=== PATIENT | male | born 1950 | race Caucasian/White ===

== ENCOUNTER 2016-10-26 14:22 | Emergency (ER) | payer MEDICARE ==
[~2016-10-26] VITALS: Ht 175.2 cm; Wt 99.8 kg
[~2016-10-26 14:22] MED LIST: ACULAR 3 ML3 M1 OP; ALBUTEROL0.09 MG/A2 INH; AMLODIPINE5 MG PO; CALCIUM 500500 M1 PO; CLARITIN-D 12 H1 TAB PO; CLARITIN10 MG PO; CRESTOR5 MG PO; DAYPRO600 M1 PO; HYDROCODONE BIT1 T11 PO; IBU-8800 MG PO; METFORMIN500 MG PO; MOTRIN800 MG PO; NAPROSYN500 MG PO; NORCO 325 MG-51 TAB PO; PARAFON FORTE500 MG PO; PREDNICOT20 MG PO; ROBAXIN750 MG PO; TOBREX OPHTH S2.5 ML OPH; ZITHROMAX Z PA250 MG PO; ZYRTEC10 MG PO
[2016-10-26] MEDS ORDERED: NAPROSYN500 MG PO (14:42)
== END 2016-10-26 15:42 | disposition home or self-care (01) ==
LOC: ED 14:22
DX: M25.571 Pain in right ankle and joints of right foot (principal); I10 Essential (primary) hypertension; Z90.49 Acquired absence of other specified parts of digestive tract; Z96.642 Presence of left artificial hip joint; Z79.899 Other long term (current) drug therapy

== ENCOUNTER 2017-01-10 21:51 | Emergency (ER) | payer MEDICARE ==
[~2017-01-10] VITALS: Ht 175.2 cm; Wt 100.7 kg
[2017-01-10] MEDS ORDERED: AUGMENTIN 875875 MG PO (22:11)
[2017-01-10] MEDS ORDERED: CLARITIN10 MG PO (22:11)
[2017-01-10] MEDS ORDERED: FLONASE ALLERG9.9 ML NAS (22:11)
== END 2017-01-10 22:14 | disposition home or self-care (01) ==
LOC: ED 21:51
DX: J01.90 Acute sinusitis, unspecified (principal); Z79.899 Other long term (current) drug therapy

== ENCOUNTER 2017-12-16 21:14 | Emergency (ER) | payer MEDICARE ==
[~2017-12-16] VITALS: Ht 172.7 cm; Wt 113.4 kg
[~2017-12-16 21:14] MED LIST changes: +AUGMENTIN 875875 MG PO; +FLONASE ALLERG9.9 ML NAS
== END 2017-12-16 21:48 | disposition home or self-care (01) ==
LOC: ED 21:14
DX: R05 Cough (principal); I10 Essential (primary) hypertension; Z79.899 Other long term (current) drug therapy; Z79.84 Long term (current) use of oral hypoglycemic drugs; Z90.49 Acquired absence of other specified parts of digestive tract

== ENCOUNTER 2018-01-11 21:09 | Emergency (ER) | payer MEDICARE ==
[~2018-01-11] VITALS: Ht 172.7 cm; Wt 90.7 kg
[2018-01-11] MEDS ORDERED: ZITHROMAX250 MG PO (21:55)
[2018-01-11] MEDS ORDERED: FLONASE ALLERG9.9 ML NAS (21:55)
== END 2018-01-11 22:00 | disposition home or self-care (01) ==
LOC: ED 21:09
DX: J32.9 Chronic sinusitis, unspecified (principal); J30.9 Allergic rhinitis, unspecified; I10 Essential (primary) hypertension; Z79.84 Long term (current) use of oral hypoglycemic drugs; Z79.899 Other long term (current) drug therapy; Z90.49 Acquired absence of other specified parts of digestive tract

== ENCOUNTER 2018-03-25 22:01 | Emergency (ER) | payer MEDICARE ==
[~2018-03-25] VITALS: Ht 172.7 cm; Wt 99.8 kg
[~2018-03-25 22:01] MED LIST changes: +ZITHROMAX250 MG PO
[2018-03-25] MEDS ORDERED: ZITHROMAX250 MG PO (22:55)
[2018-03-25] MEDS ORDERED: ROBITUSSIN DM 105 ML PO (22:55)
== END 2018-03-25 23:47 | disposition home or self-care (01) ==
LOC: ED 22:01
DX: J20.9 Acute bronchitis, unspecified (principal); I10 Essential (primary) hypertension; Z90.49 Acquired absence of other specified parts of digestive tract; Z79.899 Other long term (current) drug therapy; Z79.2 Long term (current) use of antibiotics

== ENCOUNTER 2018-08-14 15:04 | Emergency (ER) | payer MEDICARE ==
--- NOTE | ~2018-08-14 | EKG ---
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
[~2018-08-14 15:04] MED LIST changes: +ROBITUSSIN DM 105 ML PO
[2018-08-14 15:36] LABS: BASO # 0.1 10*3/uL (0.0-0.1); BASO % 0.6 % (0.0-1.0); EOS # 0.3 10*3/uL (0.0-0.4); EOS % 2.7 % (1.0-4.0); HEMATOCRIT 47.8 % (42.0-52.0); HEMOGLOBIN 15.9 g/dl (14.0-18.0); LYMPH # 1.7 10*3/uL (1.3-4.4); LYMPH % 14.2 % (27.0-41.0); MEAN CELL VOLUME 90.9 fl (80.0-94.0); MEAN CORPUSCULAR HGB 30.2 pg (27.0-31.0); MEAN CORPUSCULAR HGB CONC 33.3 g/dl (33.0-37.0); MEAN PLATELET VOLUME 9.5 fl (9.6-12.3); MONO # 1.2 10*3/uL (0.1-1.0); MONO % 9.4 % (3.0-9.0); NEUT # 8.9 10*3/uL (2.3-7.9); NEUT % 72.9 % (47.0-73.0); PLATELET COUNT AUTOMATED 244 10*3/uL (130-400); RED BLOOD COUNT 5.26 10*6/uL (4.50-5.90); RED CELL DISTRI WIDTH 12.4 % (0-14.5); WHITE BLOOD COUNT 12.2 10*3/uL (4.8-10.8)
[2018-08-14 15:53] LABS: ALBUMIN 3.8 gm/dl (3.1-4.5); ALKALINE PHOSPHATASE 85 U/L (45-117); BUN 14 mg/dl (7-24); CHLORIDE 104 mmol/L (98-107); CREATININE 1.01 mg/dL (0.70-1.30); POTASSIUM 4.1 mmol/L (3.5-5.1); SGOT/AST 17 IU/L (3-35); SGPT/ALT 28 U/L (12-78); SODIUM 138 mmol/L (136-145); TOTAL PROTEIN 7.5 gm/dL (6.4-8.2)
[2018-08-14 15:54] LABS: TROPONIN I < 0.015 ng/ml (<0.045)
[2018-10-07] MEDS ORDERED: TESSALON PERLE100 MG PO (23:41)
== END 2018-08-14 16:38 | disposition home or self-care (01) ==
LOC: ED 15:04
PROVIDERS: Nurse Practitioner Family
DX: J06.9 Acute upper respiratory infection, unspecified (principal); I10 Essential (primary) hypertension; Z79.899 Other long term (current) drug therapy

== ENCOUNTER → 2018-09-16 | Outpatient (CLI) | payer MEDICARE ==
[~2018-09-16] MED LIST changes: +TESSALON PERLE100 MG PO
== END | disposition home or self-care (01) ==
LOC: LAB 11:02
DX: R11.2 Nausea with vomiting, unspecified (principal)

== ENCOUNTER 2019-05-27 10:14 | Emergency (ER) | payer MEDICARE ==
[~2019-05-27] VITALS: Ht 167.6 cm; Wt 102.1 kg
[2019-05-27] MEDS ORDERED: CLARITIN10 MG PO (10:43)
[2019-05-27] MEDS ORDERED: FLONASE ALLERG9.9 ML NAS (10:43)
== END 2019-05-27 10:58 | disposition home or self-care (01) ==
LOC: ED 10:14
DX: J30.9 Allergic rhinitis, unspecified (principal); I10 Essential (primary) hypertension; E11.9 Type 2 diabetes mellitus without complications; E78.00 Pure hypercholesterolemia, unspecified; Z79.899 Other long term (current) drug therapy; Z79.2 Long term (current) use of antibiotics; Z90.49 Acquired absence of other specified parts of digestive tract; Z86.711 Personal history of pulmonary embolism

== ENCOUNTER 2019-08-21 18:54 | Emergency (ER) | payer MEDICARE ==
[~2019-08-21] VITALS: Ht 172.7 cm; Wt 99.8 kg
[2019-08-21] MEDS ORDERED: ZYRTEC10 M2 PO (19:22)
[2019-08-21] MEDS ORDERED: AMOXICILLIN500 M2 PO (19:22)
== END 2019-08-21 19:35 | disposition home or self-care (01) ==
LOC: ED 18:54
DX: J01.90 Acute sinusitis, unspecified (principal); Z79.899 Other long term (current) drug therapy; Z79.2 Long term (current) use of antibiotics; Z90.49 Acquired absence of other specified parts of digestive tract

== ENCOUNTER 2019-09-25 19:33 | Emergency (ER) | payer MEDICARE ==
[~2019-09-25] VITALS: Ht 6400 cm
[~2019-09-25 19:33] MED LIST changes: +AMOXICILLIN500 M2 PO; +ZYRTEC10 M2 PO
[2019-09-25] MEDS ORDERED: AMOXICILLIN500 M2 PO (21:00)
[2019-09-25] MEDS ORDERED: FLONASE ALLERG9.9 ML NAS (21:00)
== END 2019-09-25 21:06 | disposition home or self-care (01) ==
LOC: ED 19:33
DX: J06.9 Acute upper respiratory infection, unspecified (principal); Z79.899 Other long term (current) drug therapy

== ENCOUNTER → 2021-07-22 | Outpatient (CLI) | payer MEDICARE | END | disposition home or self-care (01) | LOC: COVID19 15:56 | PROVIDERS: ATTEND Student in an Organized Health Care Education/Training Program | DX: U07.1 COVID-19 (principal) ==

== ENCOUNTER 2022-08-04 09:44 | Emergency (ER) | payer MEDICARE ==
[~2022-08-04] VITALS: Wt 90.7 kg
== END 2022-08-04 11:04 | disposition home or self-care (01) ==
LOC: ED 09:44
DX: S80.212A Abrasion, left knee, initial encounter (principal); W18.30XA Fall on same level, unspecified, initial encounter; Y93.89 Activity, other specified; Y92.89 Other specified places as the place of occurrence of the external cause; Y99.8 Other external cause status

== ENCOUNTER 2023-03-14 20:49 | Emergency (ER) | payer OTHER, MEDICARE ==
[~2023-03-14] VITALS: Wt 97.1 kg
== END 2023-03-14 21:30 | disposition home or self-care (01) ==
LOC: ED 20:49
DX: Z00.00 Encounter for general adult medical examination without abnormal findings (principal); I10 Essential (primary) hypertension; E78.00 Pure hypercholesterolemia, unspecified; E11.9 Type 2 diabetes mellitus without complications; Z90.49 Acquired absence of other specified parts of digestive tract; Z98.890 Other specified postprocedural states; V89.2XXA Person injured in unspecified motor-vehicle accident, traffic, initial encounter; Y93.89 Activity, other specified; Y92.410 Unspecified street and highway as the place of occurrence of the external cause; Y99.8 Other external cause status

== ENCOUNTER 2024-04-30 17:14 | Emergency (ER) | payer MEDICARE ==
[2024-04-30] MEDS ORDERED: Tdap Vaccine 0.5 ML SYR (Adult Vaccine) IM ONE (18:00)
[2024-04-30] MEDS ORDERED: Bacitracin Zinc 14 GM TUBE T ONE (18:00)
== END 2024-04-30 18:02 | disposition home or self-care (01) ==
LOC: ED 17:14
DX: S61.512A Laceration without foreign body of left wrist, initial encounter (principal); Z79.899 Other long term (current) drug therapy; Z90.49 Acquired absence of other specified parts of digestive tract; Z96.642 Presence of left artificial hip joint; W25.XXXA Contact with sharp glass, initial encounter; Y93.89 Activity, other specified; Y92.89 Other specified places as the place of occurrence of the external cause; Y99.8 Other external cause status

== ENCOUNTER → 2024-05-31 | Outpatient (CLI) | payer MEDICARE | END | disposition home or self-care (01) | LOC: LAB 10:39 | PROVIDERS: ATTEND Internal Medicine | DX: E11.65 Type 2 diabetes mellitus with hyperglycemia (principal) ==

== ENCOUNTER → 2025-03-15 | Outpatient (CLI) | payer MEDICARE | END | disposition home or self-care (01) | LOC: RAD 10:12 | PROVIDERS: ATTEND Internal Medicine | DX: M25.762 Osteophyte, left knee (principal); M25.462 Effusion, left knee; M25.862 Other specified joint disorders, left knee; M25.562 Pain in left knee ==